=== PATIENT | male | born 1945 | race Caucasian/White ===

== ENCOUNTER 2022-11-11 12:23 | Outpatient (CLI) | payer MEDICARE, BC | END 2022-11-11 12:24 | disposition home or self-care (01) | LOC: BICULT 12:23 | PROVIDERS: ATTEND Internal Medicine | DX: N18.31 Chronic kidney disease, stage 3a (principal); N28.1 Cyst of kidney, acquired | CPT/HCPCS: 76770 ==

== ENCOUNTER 2023-11-10 14:15 | Outpatient (CLI) | payer MEDICARE | END 2023-11-10 14:16 | disposition home or self-care (01) | LOC: BICRAD 14:15 | PROVIDERS: ATTEND Internal Medicine | DX: R91.1 Solitary pulmonary nodule (principal); M25.552 Pain in left hip; M16.12 Unilateral primary osteoarthritis, left hip; J98.4 Other disorders of lung | CPT/HCPCS: 71046 ==

== ENCOUNTER 2023-12-11 08:08 | Outpatient (CLI) | payer MEDICARE | END 2023-12-11 08:09 | disposition home or self-care (01) | LOC: BICCT 08:08 | PROVIDERS: ATTEND Internal Medicine | DX: R91.8 Other nonspecific abnormal finding of lung field (principal); J98.4 Other disorders of lung | CPT/HCPCS: 71250 ==